=== PATIENT | male | born 1990 | race American Indian/Alaskan Native ===

== ENCOUNTER 2021-05-11 19:58 | Emergency (ER) | payer OTHER ==
[2021-05-11 21:19] LABS: Hematocrit 39.8 % (35.5-45.6); Hemoglobin 13.2 gm/dl (11.8-15.2); Mean Corpuscular HGB Conc 33 % (32-34); Mean Corpuscular Volume 86 fl (84-94); Platelet Count 164 K/mm3 (140-440); Red Blood Count 4.65 M/mm3 (3.65-5.03); Red Cell Distribution Width 14.8 % (13.2-15.2)
[2021-05-11 21:22] VITALS: BP 126/80
[2021-05-11 21:27] LABS: BUN/Creatinine Ratio 14; Blood Urea Nitrogen 15 mg/dL (9-20); Hemolysis Index 4
--- NOTE | 2021-05-11 21:43 | Emergency Department Report ---
ED Psych HPI - General Chief Complaint: Psych Stated Complaint: SI THOUGHTS Time Seen by Provider: 05/11/21 20:53 - History of Present Illness Initial Comments: Patient is 31 years old male with history of bipolar disorder. Patient presented to the ER stating that he is having suicidal thoughts. Patient stated that he is feeling depressed. Patient stated that his plan is to overdose on medication. Patient denied any homicidal ideation. No visual or auditory hallucination. MD Complaint: suicidal ideation, feels depressed -: Gradual Associated Psychiatric Symptoms: depression, suicidal ideation Associated Symptoms: denies other symptoms If Self Harm: admits thoughts of, has plan, intentional overdose - Related Data Allergies Allergy/AdvReac Type Severity Reaction Status Date / Time aspirin Allergy Anaphylaxis Verified 05/11/21 21:10 ED Review of Systems ROS: Stated complaint: SI THOUGHTS Other details as noted in HPI Comment: All other systems reviewed and negative Constitutional: denies: chills, fever Respiratory: denies: cough, shortness of breath, SOB with exertion Cardiovascular: denies: chest pain, palpitations Gastrointestinal: denies: abdominal pain, nausea, vomiting, diarrhea, constipation, hematemesis, melena, hematochezia Musculoskeletal: denies: back pain Neurological: denies: headache, weakness, numbness, paresthesias, confusion, abnormal gait Psychiatric: depression, suicidal thoughts. denies: anxiety, auditory hallucinations, visual hallucinations, homicidal thoughts ED Physical Exam - General General appearance: alert, in no apparent distress - Head Head exam: Present: atraumatic, normocephalic, normal inspection - Eye Eye exam: Present: normal appearance, PERRL - ENT ENT exam: Present: normal exam, normal orophraynx, mucous membranes moist - Neck Neck exam: Present: normal inspection, full ROM. Absent: tenderness, meningismus - Respiratory Respiratory exam: Present: normal lung sounds bilaterally - Cardiovascular Cardiovascular Exam: Present: regular rate, normal rhythm, normal heart sounds - GI/Abdominal GI/Abdominal exam: Present: soft, normal bowel sounds. Absent: distended, tenderness, guarding, rebound, rigid, organomegaly, mass, bruit, pulsatile mass, hernia - Extremities Exam Extremities exam: Present: normal inspection, full ROM, normal capillary refill. Absent: tenderness, pedal edema, joint swelling, calf tenderness - Back Exam Back exam: Present: normal inspection, full ROM. Absent: CVA tenderness (R), CVA tenderness (L) - Neurological Exam Neurological exam: Present: alert, oriented X3, CN II-XII intact, normal gait, reflexes normal. Absent: motor sensory deficit - Psychiatric Psychiatric exam: Present: flat affect, suicidal ideation. Absent: homicidal ideation - Skin Skin exam: Present: warm, intact, normal color ED Course Vital Signs 05/11/21 05/11/21 21:11 21:21 Temperature 97.6 F Pulse Rate 62 Respiratory 16 Rate Blood Pressure 126/80 [Right] O2 Sat by Pulse 98 98 Oximetry ED Medical Decision Making - Lab Data Result diagrams: 05/11/21 20:58 05/11/21 20:58 - Medical Decision Making Patient is 31 years old male with history of bipolar disorder. Patient presented to the ER stating that he is having suicidal thoughts. Patient stated that he is feeling depressed. Patient stated that his plan is to overdose on medication. Patient denied any homicidal ideation. No visual or auditory hallucination. Labs reviewed and is unremarkable. Patient is medically clear to be evaluated by psychiatric team. Patient has been evaluated by psychiatric team and advised to discharge patient home and follow-up as an outpatient. Critical care attestation.: If time is entered above; I have spent that time in minutes in the direct care of this critically ill patient, excluding procedure time. ED Disposition Clinical Impression: Suicidal ideation Disposition: 01 HOME / SELF CARE / HOMELESS Is pt being admited?: No Condition: Stable Instructions: Suicidal Feelings: How to Help Yourself Referrals: PRIMARY CARE, [Primary Care Provider] - 3-5 Days
[2021-05-12 00:09] LABS: Total Cells Counted 100
[2021-05-12 00:10] LABS: Anisocytosis 1+; Platelet Estimate Consistent w Auto
== END 2021-05-12 02:29 | disposition home or self-care (01) ==
LOC: ED 19:58
DX: R45.851 Suicidal ideations (principal); Z88.6 Allergy status to analgesic agent
CPT/HCPCS: 36415; 80048; 80320; 85007; 85025; 99283; G0480